=== PATIENT | male | born 1990 | race Caucasian/White ===

== ENCOUNTER 2024-06-03 18:41 | Emergency (ER) | payer SELFPAY ==
[~2024-06-03] VITALS: Ht 177.8 cm; Wt 73.0 kg
[2024-06-03 18:54] VITALS: BP 122/76; PULSE 80; RESP 16; TEMP 99; O2SAT 98
== END 2024-06-03 19:22 | disposition left against medical advice (07) ==
LOC: ER 18:41
DX: R56.9 Unspecified convulsions (principal); Z53.21 Procedure and treatment not carried out due to patient leaving prior to being seen by health care provider
CPT/HCPCS: 99283